=== PATIENT | female | born 1960 | race Caucasian/White ===

== ENCOUNTER 2020-12-26 15:22 | Inpatient (IN) | payer BC, OTHER ==
[~2020-12-26] VITALS: Ht 176 cm; Wt 65.8 kg
[2020-12-26] MEDS ORDERED: RISPERDAL 3 MG T3 MG PO (20:44)
[2020-12-26] MEDS ORDERED: TRAZODONE HCL100 MG PO (20:44)
[2020-12-26] MEDS ORDERED: LEVOTHYROXINE150 MC1 PO (20:45)
[2020-12-26] MEDS ORDERED: ANUSOL-HC25 MG PO (20:46)
[2020-12-26] MEDS ORDERED: VITAMIN D21250 MCG PO (20:47)
[2020-12-26] MEDS ORDERED: HGH (20:49)
[2020-12-27 00:16] VITALS: BP 149/70
[2020-12-27] MEDS ORDERED: CORTEF 20 MG TA20 MG PO (01:33)
[2020-12-27] MEDS ORDERED: CORTEF5 MG PO (01:34)
[2020-12-27] MEDS ORDERED: CORTEF10 MG PO (01:34)
[2020-12-27] MEDS ORDERED: VITAMIN D31250 MC1 PO (01:37)
[2020-12-27] MEDS ORDERED: ZYRTEC 10 MG TA10 MG PO (01:41)
[2020-12-27] MEDS ORDERED: LORAZEPAM 0.50.5 MG PO (01:42)
[2020-12-27] MEDS ORDERED: OLANZAPINE10 M1 PO (01:43)
[2020-12-27] MEDS ORDERED: GENOTROPIN SUBQ (01:44)
--- NOTE | 2020-12-27 02:47 | NUR ---
ADMISSION SUMMARY - NURSING PT WAS ADMITTED TO [facility] ON 12/26/20 AT 2215. VITAL SIGNS OBTAINED; WITHIN NORMAL LIMITS. SKIN ASSESSMENT PERFORMED; NO REMARKABLE FINDINGS. PT WAS UNCOOPERATIVE DURING INTERVIEW. PT WOULD NOT PARTICIPATE IN CONVERSATION. PT DID NOT ANSWER WHEN ASKED ABOUT SI/HI OR AVH. PT APPEARED TO BE RESPONDING TO INTERNAL STIMULI; TRACKING WITH HER EYES, SPEECH DELAYED AND THOUGHT BLOCKING. PT IS AMBULATORY; FALL PRECAUTIONS ARE IN PLACE. PT WAS ORIENTED TO ROOM AND PROVIDED WITH WATER, TOILETRIES, AND LINENS. /GUARDIAN NOAH AGUILAR WAS NOTIFIED VIA PHONE AND VERBAL CONSENTS WERE OBTAINED.
[2020-12-27 09:08] VITALS: BP 145/74
--- NOTE | 2020-12-27 09:24 | NUR ---
Nutrition: pt admitted to [facility] with psychosis. PMH: Schizophrenia, bipolar, insomnia. Visited with pt in dayroom. She initially reports her appetite was good "Sometimes" but then refused to answer further questions. Unaware of UBW. Current 139#, will follow trends as no wt hx in [employer]. Did eat 75% of breakfast per CHAINSTITCH FELLED SEAM OPERATOR this morning. No labs. On Vitamin D supplement. Place as low risk but monitor for necessary interventions.
--- NOTE | 2020-12-27 12:02 | NUR ---
PATIENT WAS AWAKE AMBULATING IN ROOM WHEN CARE ASSUMED. PATIENT IS ALERT, AND ORIENTED X 3-4 ABLE TO VOICE NEED, BUT CHOOSE NOT TO RESPOND TO ALL ASSEMENT QUESTIONS. PATIENT TOOK ALL MEDICATION WHOLE WITHOUT DIFFICULTY, SHE IS EATING MEALS, AND DRINKING FLUID WELL. PATIENT DENIES SUICIDAL/HOMICIDAL IDEATION, SHE DENIES DEPRESSION/ANXIETY, SHE RATES GHAZALA LOWER EXTREMETY PAIN 4/10, PRN TYLENOL 650MG GIVEN WITH POSITIVE EFFECT, PAIN DECREASED TO 1/10 UPON REASSESSMENT. AFFECT IS FLAT/BLUNTED, MOOD IS EUTHYMIC, POOR EYE CONTACT. PATIENT SAT IN MORNING GROUP, NO SIGN OF ACUTE DISTRESS NOTED AT THIS TIME, WILL MONITOR FOR SAFETY.
[2020-12-27 13:34] LABS: CHOLESTEROL 277 mg/dL (<200); HDL CHOLESTEROL 37 mg/dL (>40); LDL CHOLESTEROL 202 mg/dL (<100); TC:HDL 7.5 Ratio (Not establshd); TRIGLYCERIDE 190 mg/dL (<150); VLDL 38 mg/dL (<40)
[2020-12-27 19:38] VITALS: BP 135/73
[2020-12-27 22:37] VITALS: BP 135/73
--- NOTE | 2020-12-28 01:33 | NUR ---
Ashley was isolative and withdrawn to her room throughout the night. She was drowsy but easy to arouse when approached. She denied SI/HI but when asked about CUBA, pt refused to respond. She initially did not wish to take her scheduled risperdal but once educated on why she was here, to get stable back on her medications, pt was compliant with medication, without difficuly. She did come out of her room later in the evening and stating, "I need to talk to someone about a snake", turned around and showed nurse what appeared to be a bug bite to the middle of her buttocks. Nurse redirected pt to her room where pt's skin was further assessed and pt responded appropriately. Pt was educated that it appeared to be a bug bite and that we would continue to monitor as it did not appear infected at this time and no drainage noted. Pt did not voice other concerns at this time and no distress noted. Pt's dropped off pt's medications and are currently with inpatient pharmacy, update provided as well. Will continue to monitor.
[2020-12-28 09:20] VITALS: BP 113/62
--- NOTE | 2020-12-28 12:22 | NUR ---
Alert and orientated to name only. Sleepy spending majority of time in room. Calm and cooperative, compliant with meds. Did ask about her hydrocortisone. Selective in answering questions. Denies SI/HI. Breath sounds clear. Reg HR auscultated. Color pink with brisk capillary refill and palpable peripheral pulses. No edema noted. Independent with voiding. Active bowel sounds over soft, rounded abdomen. States BM yesterday. Ambulates with regular, steady gait.
--- NOTE | 2020-12-28 13:54 | NUR ---
12-28-2020--13:30--Woke patient up and asked her to come to group. She declined.
--- NOTE | 2020-12-28 17:19 | NUR ---
1000 SW met with the Pt in the dining room. Pt initally seemed to be open to talking. However when SW asked the Pt about walking away from group and walking away from her home on occassion. Pt stopped talking and seemed to ignore SW. SW tried to rengage the Pt by changing the subject. Pt continued not engage in any conversation with SW. SW allow Pt to continue eating her morning snack and left.
[2020-12-28 19:34] VITALS: BP 115/65
[2020-12-28 20:00] VITALS: BP 115/65
--- NOTE | 2020-12-29 00:20 | NUR ---
[facility] CARE WAS RESUMED AT 1900. SHE IS ALERT WITH SOME CONFUSION. ABLE TO VERBALIZE SOME CONCERN. SHE IS CONTINENT OF BOWEL AND BLADDER. TOOK HER MEDS WHOLE.BS IS ACTIVE X4 QUADS . SHE DENIES PAINS/SI/AVH/HI. SHE HAS A YELLOW SOCKS ON. BED IS LOW, LOCKED AND ALARMED. SHE REFUSED HER HS HOME MEDS," I STOPPED ATKING IT 8YEARS AGO". SHE IS A MODERATE ASSIST WITH CARE. [id number] CHECK ONGOING. CONTINUE CARE.
--- NOTE | 2020-12-29 01:30 | NUR ---
This RN resumed care of pt at 1215. Pt is sleeping and does not appear in any distress at this time. Will continue to monitor.
[2020-12-29 08:28] VITALS: BP 109/63
--- NOTE | 2020-12-29 13:54 | NUR ---
12-29-2020--GROUP--Ashley was present at group but doid not participate or join in on any conversations about anger.
--- NOTE | 2020-12-29 14:52 | NUR ---
CARE OF PATIENT ASSUMED AT 0700, PATIENT WAS LAYING IN BED AWAKE, ALERT AND ORIENTED X3, PATIENT CALM AND PLEASANT WITH ASSESSMENT, ACTIVE BOWEL SOUND WITH SOFT AND ROUNDED ABDOMEN, LUNGS CLEAR, REGULAR HR AUSCULTATED, COLOR PINK WITH BRISK CAPILLARY REFILL, RR EVEN AND NONLABORED ROOM AIR, SKIN INTACT, NO EDEMA NOTED, PATIENT TOOK MEDICATION WHOLE, AMBULATE WITH A WHEEL CHAIR DUE TO WEAKNESS ON HER LEGS, INCONTINENT OF BLADDER, ATE MEALS IN HER ROOM AND ATTEND GROUPS, NO BEHAVIOR CHANGE. PATIENT DENIES SI/HI, WILL CONTINUE TO MONITOR PATIENT FOR SAFETY
[2020-12-29 19:48] VITALS: BP 124/62
--- NOTE | 2020-12-29 20:04 | H ---
[facility] [place] [address] HISTORY AND PHYSICAL Name: FERMÍN AGUILAR Room #: 525B-B ADM IN M.R.#: [id number] Admission: 12/26/20 Attend Phys: Rissa Soriano MD Discharge: Date of : 60 Report #: [id number] THIS REPORT FOR: cc: FAM - Family physician unknown FAM - Family physician unknown Aleksey Chen DO ~ DATE OF SERVICE: 12/26/2020 INPATIENT PSYCHIATRIC EVALUATION ATTENDING PSYCHIATRIST: Aleksey Chen DO MEDICAL CONSULTANTS: Annette Perez and Billy Galdamez MD, and the hospitalist team. REASON FOR ADMISSION: Psychosis including guardedness, paranoia, walking off over a mile from house, being found in grass, and refusing to take psychiatric medication. SOURCES OF INFORMATION: Telephone interview with , Rogelio, who is her guardian, who is under [place] guardianship. [facility] screen records and from [facility] and chart review. The patient is a poor historian and was not forthcoming. CHIEF COMPLAINT: Unspecified. HISTORY OF PRESENT ILLNESS: A 60-year-old female under [place] guardianship. The patient was found walking a few miles from home and refusing medications since April of this year. Confusion, paranoia, auditory or visual hallucinations, disoriented, insomnia, and refusing to talk. The patient was evaluated by Aarbella Sparks, an SQL SERVER DBA, from [facility]. There are notes, which indicate she was gone for about 4 hours. She was found a mile and a half from her home, laying in the grass next to the road, was defiant, oppositional when found, refusing to return home. reports she has been not taking her risperidone for the last 8 months or any of her other medications. reports she wakes up around 3:00 a.m. every night, will walk outside anywhere from 5 seconds to 5 minutes and then return to bed, gets up and repeats this 3-4 more times before returning to sleep for the night. observes her talking to herself frequently. does not know if she is eating when he is at work. He gets her to eat 2-3 meals a day when he is home with her. Client has been restless and defiant with him the last several days. Client did not respond to receiver bulk system, did not respond verbally or shake head when being asked questions. She stared blankly at the receiver bulk system off into the distance. I did not have much better luck with her this morning. LABORATORY AND DIAGNOSTIC DATA: From [facility] done on 12/24/2020, [address] [address] HISTORY AND PHYSICAL Name: FERMÍN AGUILAR Room #: 525B-B ADM IN M.R.#: [id number] Admission: 12/26/20 Attend Phys: Rissa Soriano MD Discharge: Date of : 60 Report #: [id number] white count was 5.04, H and H 9.8 and 28.1, platelet count is 144. Glucose 72, BUN 13, creatinine 1.01. Sodium 138, potassium 3.76, chloride 107, bicarbonate 24, AST 37, ALT 9, alkaline phosphatase 75, calcium 8.9. Total protein 6.6, albumin 4.1. CPK is 365, very mildly elevated. CK-MB 3.27. Troponin high sensitivity 27. CK-MB index 0.9. Alcohol less than 10. Magnesium 1.8. EKG done at [facility] showed sinus bradycardia, ventricular rate of 50, low voltage QRS, QTc 452, TX interval 184 milliseconds. PAST MEDICAL HISTORY: Includes hypothyroidism, hypokalemia, hypopituitarism. 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 The guardian gave a handwritten note, which I reviewed, describing some of the problems. When she was 17, she had twins by . She hemorrhaged, they did not get blood back in her in time, her pituitary gland was damaged. She has been on Synthroid, hydrocortisone, and hormone replacement since she was 22 years old. Whenever she gets sick, it can get life-threatening quick, is to become febrile, very high. 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 In 1998, Dr. Lopez Olivera at [facility] put her in a study for human growth hormone. She has been getting that regularly, that helped her stronger to fight illness and gave her a better quality of life. She has lived longer, but it is hard on her mentally. About 7 years ago, she started seeing things and hearing voices, she would talk to herself. Dr. Olivera was having a hard time regulating meds. Her TSH level was done as well, it was 0.01. She started having this problem, so Dr. Olivera took her off Synthroid and put her on levothyroxine. Ten months ago, we got her back on Synthroid. She has done better. They checked thyroid a couple of days ago and think levels were better, I believe it was 3.5. I put her on risperidone 4 mg and trazodone 100 mg, that is what has worked best for her and she does not feel weird when she takes it, so she will take it longer. Everything else, she will not stay on. Reportedly, she has had 13 hospital stays and treatments over the last 2 years. FAMILY PSYCHIATRIC HISTORY: No history of psychiatric illness in the family. She had three sisters and one brother. Her sisters of various causes. FAMILY MEDICAL HISTORY: Denied. SOCIAL HISTORY: She has two grown children. This is her second marriage. No history of physical, sexual, or emotional abuse. No history of alcohol, smoking, or tobacco use. PHYSICAL EXAMINATION: VITAL SIGNS: Today, temperature 36.2, pulse 68, respirations 17, BP 145/74, O2 sat 99%. MUSCULOSKELETAL: Unkempt appearance. Normal gait and station. [facility] [address] [place] [address] HISTORY AND PHYSICAL Name: FERMÍN AGUILAR [facility] IN M.R.#: [id number] Admission: 12/26/20 Attend Phys: Rissa Soriano MD Discharge: Date of : 60 Report #: [id number] MENTAL STATUS EXAMINATION: This is a well-developed, unkempt-appearing, tanned female, appearing older than stated age. BMI 20.4, weight 63.049 kilograms. Height 176 cm. Attention and concentration impaired. Speech slow, nonspontaneous. Thought process and thought content: Unable to really assess. No overt self-harm behaviors, or denied auditory, visual, or tactile hallucinations. mood/affect- flat, congruent Memory not able to be tested. Insight and judgment were impaired. Fund of knowledge well below average. Please note, education level is GED. REVIEW OF SYSTEMS: Not able to be done due to her noncooperation. ALLERGIES: PENICILLINS, NITROFURANTOIN, ARIPIPRAZOLE. FORMULATION: A 60-year-old female brought in by spouse for acute psychotic symptoms and self-care failure. DIAGNOSES: At this time, unspecified psychosis, history of schizophrenia, panhypopituitarism, hypothyroidism. SURGICAL HISTORY: Includes . PLAN: Admitted by guardian to [facility]. Regarding medications, hydrocortisone 5 mg oral daily with lunch for hypopituitarism, start risperidone 2 mg oral at 1100 and 2100 daily with forced IM backup as necessary, 2.5 mg haloperidol. She has ergocalciferol 50,000 international units oral weekly, hydrocortisone 10 mg p.o. b.i.d. with meals, Synthroid 150 mcg a day. is going to bring in the home meds. Trazodone 50 mg oral at bedtime for insomnia. We will change that one to p.r.n. I have discontinued olanzapine this morning, so we have added haloperidol. We will see how she responds to initial antipsychotic. She is a FULL CODE. does not have concerns about dementia at this time. Time spent on case today is greater than 60 minutes, greater than 50% of time in review of records and coordination of care, including telephone conversation. STRENGTHS: Insured. She is under guardianship. [address] [address] HISTORY AND PHYSICAL Name: FERMÍN AGUILAR Room #: 525B-B ADM IN M.R.#: [id number] Admission: 12/26/20 Attend Phys: Rissa Soriano MD Discharge: Date of : 60 Report #: [id number] WEAKNESSES: Chronic noncompliance with antipsychotic medications, poor coping skills, limited caregivers available and she has been home alone. <ELECTRONICALLY SIGNED> By: Aleksey Chen DO 12/29/202003 1350 [id number] Aleksey Chen DO /nt
--- NOTE | 2020-12-30 02:58 | NUR ---
PATIENT IS RESTING HER ROOM LYING DOWN. PT APPEARS TO BE MORE ALERT TODAY. SHE ASKED ABOUT HER MEDICATIONS AND TOOK THEM WITHOUG ISSUE. SHE IS AAOX2 AT THIS TIME. DENIES PAIN OR NEEDS. SHE DOES APPEAR LETHARGIC BUT STATES THAT SHE FEELS GOOD. SHE STAYED IN HER ROOM FOR THE MAJORITY OF THE SHIFT. VSS. WILL CONTINUE TO MONITOR FOR CHANGES IN PATIENT STATUS.
[2020-12-30 09:58] VITALS: BP 128/53
--- NOTE | 2020-12-30 16:18 | NUR ---
HAS BEEN OUT OF ROOM MAJORITY OF DAY-DID ATTEND SCHEDULED GROUP AND STRUCTURES FREE TIME WORKING ON PUZZLES IN THE DAYROOM. SOME SOCIALIZATION WITH FEMALE PEER AND DID SPEAK WITH BRIEFLY ON PHONE. GAIT STEADY WITHOUT ASSISTIVE DEVICES. IS SOMEWHAT VAUGUE,SUPERFICIAL DURING 1;1 INTERACTION WITH THIS RN-UNABLE TO STATE WHAT HAD BROUGHT HER TO HOSPITAL-DENIES C/O PAIN-APPETITE FAIR/GOOD EATING 50-75 PECENT OF MEALS PROVIDED.
[2020-12-30 19:55] VITALS: BP 124/62
--- NOTE | 2020-12-31 01:47 | NUR ---
PATIENT RESTING IN COMMON AREA IN A RECLINER. SHE IS INTERACTIVE AND ANSWERING QUESTION TONIGHT. SHE IS AAOX3. ASKED QUESTIONS ABOUT HER RISPERDAL. STATES THAT SHE DOES NOT NEED THE COLACE. AFFECT MUCH MORE BRIGHT COMPARED TO PREVIOUS 2 EVENINGS. SHE IS AMBULATING UNDER HER OWN POWER. NO S/S OF DISTRESS NOTED. WILL CONTINUE TO MONITOR FOR CHANGES IN PATIENT STATUS.
[2020-12-31 09:41] VITALS: BP 114/90
--- NOTE | 2020-12-31 14:52 | NUR ---
patient resumed at 0700, patient is alert and oriented x3, she came out for breakfast then went back to the room, assessment completed with active bowel sound with soft and rounded abdomen, breath sound diminished, patient covid test came back positive, patient is now on isolation room, oxygen sat to be done every 6 hours per doctor's order, she took her medication whole patient denies si/hi
[2020-12-31 19:26] VITALS: BP 127/70
[2020-12-31 19:55] VITALS: BP 101/51
[2021-01-01] VITALS (7 sets, daily range): BP systolic 118–130; BP diastolic 58–78
--- NOTE | 2021-01-01 02:56 | NUR ---
PATIENT CARE WAS RESUMED AT 1900. SHE IS ON ISOLATIN FOR COVID POSITIVE. SHE IS RESING IN BED. REFUSING MOST OF THE CARE AND NOT CO-OPERATIVE.VITALS ARE WITHIN NRAML RANGES. NO TEMP. SHE DENIES PAINS/AVH/HI. BED IS LOW, LOCKED AND ALARMED. SHE TOOK HER PILLS WHOLE AND SHE IS CONTINENT OF BOWEL AND BLADDER. ABLE TO VERBALISE HER NEEDS.
--- NOTE | 2021-01-01 11:46 | NUR ---
Dr. Lucas and DORIE called Pt's guardian concernin discharge. LEft a VM requesting a call back
--- NOTE | 2021-01-01 14:38 | NUR ---
RESUMMED CARE FROM OVERNIGHT SHIFT THIS AM, PATIENT IN ROOM LYING QUIET. PATIENT ATE BREAKFAST TOOK MEDICATION WITHOUT INCIDENCE; PATIENT ALERT ORIENTED TIMES 3. PATIENT DENIES SI/HI/AH/VH AT PRESENT PATIENT LIKES TO COME OUT OF ROOM AND HAS TO BE REDIRECTED TO STAY IN ROOM. PATIENTS ABDOMEN SOFT BOWEL SOUNDS PATIENTS LUNGS CLEAR. PATIENT IS ASYMPTOMATIC FOR COVID WILL CONTINUE TO MONITOR PATIENT FOR SAFETY AND BEHAVIORS.
--- NOTE | 2021-01-01 21:59 | NUR ---
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 PT REMAINS ON COVID ISOLATION PRECAUTIONS. THIS SHIFT PT WAS ALERT AND ORIENTED TO SELF. AFFECT WAS FLAT AND PT MADE POOR EYE CONTACT. PT WAS COMPLIANT WITH MEDICATIONS AND VITAL SIGNS. PT COULD ANSWER QUESTIONS APPROPRIATELY, BUT WOULD NOT ANSWER ANY QUESTIONS ABOUT SI/HI/AVH/DEPRESSION/ANXIETY OR QUESTIOS TO MEASURE ORIETATION. PT COMPELTELY STOPPED TALKING TO RN SOON RN ASKED PSYCH QUESTIONS. PT DID STATE THAT HER DAY HAS NOT BEEN GOOD SINCE SHE HAS TO ISOLATE. FALL PRECAUTIONS ARE IN PLACE. WILL CONTINUE TO MONITOR PT FOR PSYCH SYMPTOMS.
[2021-01-02 09:09] VITALS: BP 140/72
--- NOTE | 2021-01-02 11:14 | NUR ---
PATIENT ALERT AND ORIENTED X2-3 WHEN CARE WAS ASSUMED BY 0700, PATIENT IS SITTING ON A CHAIR IN THE ROOM, PLEASANT WITH CARE VSS, TOOK HER MEDICATIOM WHOLE, NO PROBLEM, ACTIVE BOWEL SOUND, BREATH SOUND CLEAR, RR EVEN NONLABORED ON ROOM AIR, REGULAR HR, O2 M[place] 100%, PATIENT CONTINUE TO STAY IN HER ROOM, SHE AMBULATE ON A STEADY GAIT, DENIES SI/HI, NO PAIN REPORTED, NO BEHAVIOR CHANGES.
--- NOTE | 2021-01-02 14:49 | NUR ---
01-02-2021--13:00--GROUP--Patient was present for group. (It was a continuatiomn from last week on anger and where in our bodies we first start feeling anger.) Although she was present and attentive she didn't join in the conversation or discussion.
[2021-01-02 20:00] VITALS: BP 140/72
--- NOTE | 2021-01-02 23:41 | NUR ---
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 PT IS ON ISOLATION PRECAUTIONS FOR COVID. PT WAS COOPERATIVE WITH STAYING IN HER ROOM. PT WAS ALERT TO SELF. IT WAS DIFFICULT TO ASSESS HOW ORIENTED PT IS BECAUSE SHE IS GUARDED WITH STAFF. PT WAS COMPLIANT WIHT MEDICATION AND VITAL SIGNS. PT MADE A COMMENT TO RN THAT WHEN SHE GOES HOME "EVERYTHING WILL BE VERY DIFFERENT." RN ASKED PT WHAT WILL BE DIFFERENT AND PT RESPONDED "I JUST HAVE SO MUCH TO DO. GET EVERYTHING ORGANIZED." PT WOULD NOT ELABORATE WHEN RN QUESTIONED HER FURTHER. PT DENIED COVID SYMPTOMS.
[2021-01-03 00:15] VITALS: BP 135/86
--- NOTE | 2021-01-03 14:36 | NUR ---
PATIENT CONTINUE ON ISOLATION PRECAUTION, STAYS IN ROOM, BUT COMES OUT INTERMITTENTLY, AND IMMEDIATELY REDIRETS BY STAFF TO COMPLY WITH ISOLATION PRECAUTION. PATIENT TOOK ALL MEDICATION WHOLE WITHOUT DIFFICULTY. SHE IS EATING MEALS, AND DRINKING FLUID IN ROOM WELL. PATIENT DENIES SUICIDAL/HOMICIDAL IDEATION. SHE DENIES DEPRESSION/ANXIETY, "AM GOING HOME TODAY, I FEEL BETTER". PATIENT DENIES HAVING PHYSICAL PAIN. PATIENT OBSERVED BY STAFF REPONDING TO INTERNAL STIMULI, TALKING TO SELF, AND UNSEEN OTHERS. AFFECT IS FLAT/BLUNTED, MOOD IS EUTHYMIC. PATIENT IS DICHARGED HOME TODAY BY DR. HILL, TO PICK HER UP AT 1530HRS. NO SIGN OF ACUTE DISTRESS NOTED AT THIS TIME, WILL MONITOR FOR SAFETY.
[2021-01-03] MEDS ORDERED: LIPITOR 20 MG T20 M1 PO (14:42)
[2021-01-03] MEDS ORDERED: RISPERDAL2 MG PO (14:43)
[2021-01-03] MEDS ORDERED: CALTRATE-600 W1 EACH PO (14:44)
[2021-01-03] MEDS ORDERED: HYDROCORTISONE10 MG PO ×2 (14:45→14:46)
[2021-01-03] MEDS ORDERED: COLACE 100 MG100 MG PO (14:45)
[2021-01-03 15:00] VITALS: BP 135/86
--- NOTE | 2021-01-03 16:26 | NUR ---
01/02/2021 DORIE contacted the Pt's huband/Guardian, Bhavesh concerning discharge. Bhavesh confirmed he had spoken with Dr. Lucas and was in agreement with the discharge. DORIE asked Bhavesh if Pt had an outpt therapist or psychiatrist. Bhavesh informed Pt sees the terminal operations supervisor for psychiatry. DORIE provided education about the importance of Pt having follow up psychiatric services with a psychiatrist. Bhavesh stated that he would have to ask the Pt if she wanted to participate in psychiatry. DORIE offered to set up a follow up appointments. Bhavesh refused follow up psychiatric appointment be set up. Discharge was set for 01/03/2021 @3370. Bhavesh will transport the Pt. DORIE will provide information on scheduling an intake appointment with [facility] on the discharge document.
--- NOTE | 2021-01-04 22:28 | D ---
[facility] [place] [address] DISCHARGE SUMMARY Name: FERMÍN AGUILAR Room #: 525B-B [facility] IN M.R.#: [id number] Admission: 12/26/20 Attend Phys: Rissa Soriano MD Discharge: 01/03/21 Date of : 60 Report #: [id number] THIS REPORT FOR: cc: FAM - Family physician unknown FAM - Family physician unknown Aleksey Chen DO ~ DATE OF SERVICE: 01/03/2021 PSYCHIATRIC DISCHARGE SUMMARY ATTENDING PSYCHIATRIST: Aleksey Chen D.O. PLATE CLEANER: Dr. Carolee Orellana. DISCHARGE DIAGNOSES: 1. Schizophrenia. 2. Coronavirus, positive by PCR, then negative on subsequent tests. The patient was on isolation precautions at the time of discharge, recommending the patient continue isolation for 6 more days at home. Her and guardian is aware of this. The patient is discharged to her home, 24-hour supervision was recommended; however, the guardian is only going to be part-time caregiver. DISCHARGE MEDICATIONS: These were sent to [facility] in [place]. They include levothyroxine sodium 150 mcg oral daily for hypothyroidism, ergocalciferol 50,000 international units oral weekly, atorvastatin 20 mg oral daily for hyperlipidemia, risperidone 5 mg oral at bedtime for schizophrenia, calcium carbonate 500 mg oral 3 times a day for supplementation, docusate sodium 100 mg oral twice per day hold if diarrhea or bowel motility, hydrocortisone 10 mg oral twice daily with meals for hypopituitarism and 5 mg oral daily with lunch. The patient's after care should be at [facility]. The patient should have wraparound services in lieu of having 24-hour care at home. The patient is on a regular diet. Activity level is as tolerated. No alcohol, no illicit drugs. The patient is to see primary care physician within 1 month. LABORATORY DATA: Significant laboratories this admission. A1c 5.0. Triglycerides 190, total cholesterol 277, LDL 202, HDL 37. COVID-19 serology as described above. Ambiguous testing went from not detected on 12/26 and 12/29, positive 12/31 and not detected same day on 12/31. REASON FOR ADMISSION: Back on 12/26/2020, a 60-year-old female presented to [facility] after being found a [place] a half from her home. The patient was disheveled, oppositional when found. The patient had been refusing [facility] [address] [place] [address] DISCHARGE SUMMARY Name: FERMÍN AGUILAR Room #: 525B-B [facility] IN M.R.#: [id number] Admission: 12/26/20 Attend Phys: Rissa Soriano MD Discharge: 01/03/21 Date of : 60 Report #: [id number] antipsychotic medications for 8 months. HOSPITAL COURSE: The patient was admitted to [facility] Unit. She was started on risperidone on a dose of 2 mg twice daily. We had several phone conferences with her who is also [place] guardian. He describes that the patient has refused medications since around the first of the year, she had been hospitalized in late 2019. He has allowed this at this time, but the patient had gotten relatively worse and had walked off and missing for several hours, was found in need of psychiatric admission. I discussed long-acting injection with him such as Ivega Susteena or Haldol Decanoate, the guardian declined. I discussed the need for 24-hour supervision when he is at work until good habits are established at discharge. Unfortunately, the last several days of admission were hampered by her testing positive for COVID-19 on unit surveillance testing. She had to be isolated to her room. She was not happy with this. Her was worried that she would develop fulminant symptoms like picture; she did not. At time of discharge, the patient was in stable condition. No SI, no HI. VITAL SIGNS: Temperature 36.3, pulse 86, respirations 18, BP 135/86, weight 65,771 kg, BMI 21.2. MUSCULOSKELETAL: Unkempt appearance. Normal gait and station. MENTAL STATUS EXAMINATION: This is a well-developed female, appearing stated age. Attention fair. Concentration limited. Speech normal rate, rhythm and tone. Thought process: Linear and goal directed. Thought content focused on discharge. Denied SI, HI. Denied auditory, visual or tactile hallucinations. Mood and affect was okay, congruent, somewhat flattened affect. Memory not formally tested. Insight limited. Judgment limited. Fund of knowledge below average. Prognosis for this patient is guarded due to her history of poor compliance and only partial acceptance of recommendations per guardian. <ELECTRONICALLY SIGNED> By: Aleksey Chen DO 01/04/212227 [id number] Aleksey Chen DO /nt
== END 2021-01-03 15:45 | disposition home or self-care (01) | DRG 885 ==
LOC: SBH
PROVIDERS: Psychiatry & Neurology Psychiatry; ADMIT Psychiatry & Neurology Psychiatry; ATTEND Psychiatry & Neurology Psychiatry
DX: F20.9 Schizophrenia, unspecified (principal); U07.1 COVID-19; E23.0 Hypopituitarism; F29 Unspecified psychosis not due to a substance or known physiological condition; F22 Delusional disorders; F31.9 Bipolar disorder, unspecified; E03.9 Hypothyroidism, unspecified; G47.00 Insomnia, unspecified; Z28.21 Immunization not carried out because of patient refusal; Z88.1 Allergy status to other antibiotic agents; Z88.0 Allergy status to penicillin; Z88.8 Allergy status to other drugs, medicaments and biological substances; Z98.891 History of uterine scar from previous surgery; Z79.899 Other long term (current) drug therapy
CPT/HCPCS: 10880

== ENCOUNTER 2020-12-26 16:52 | Emergency (ER) | payer BC, OTHER ==
[~2020-12-26] VITALS: Ht 160 cm; Wt 63.5 kg
[2020-12-26 16:54] VITALS: BP 137/64
--- NOTE | 2020-12-26 19:37 | NUR ---
PT PULLED OFF MONITORING EQUIPMENT AT THIS TIME.
[2020-12-26] MEDS ORDERED: RISPERDAL 3 MG T3 MG PO (20:44)
[2020-12-26] MEDS ORDERED: TRAZODONE HCL100 MG PO (20:44)
[2020-12-26] MEDS ORDERED: LEVOTHYROXINE150 MC1 PO (20:45)
[2020-12-26] MEDS ORDERED: ANUSOL-HC25 MG PO (20:46)
[2020-12-26] MEDS ORDERED: VITAMIN D21250 MCG PO (20:47)
[2020-12-26] MEDS ORDERED: HGH (20:49)
[2020-12-26 22:05] VITALS: BP 149/74
[2020-12-27] MEDS ORDERED: CORTEF 20 MG TA20 MG PO (01:33)
[2020-12-27] MEDS ORDERED: CORTEF5 MG PO (01:34)
[2020-12-27] MEDS ORDERED: CORTEF10 MG PO (01:34)
[2020-12-27] MEDS ORDERED: VITAMIN D31250 MC1 PO (01:37)
[2020-12-27] MEDS ORDERED: ZYRTEC 10 MG TA10 MG PO (01:41)
[2020-12-27] MEDS ORDERED: LORAZEPAM 0.50.5 MG PO (01:42)
[2020-12-27] MEDS ORDERED: OLANZAPINE10 M1 PO (01:43)
[2020-12-27] MEDS ORDERED: GENOTROPIN SUBQ (01:44)
== END 2020-12-26 22:07 | disposition still patient (30) ==
LOC: ER 16:52 → EROBS 17:03 → ER 17:03
PROVIDERS: Emergency Medicine
DX: F20.0 Paranoid schizophrenia (principal); Z20.822 Contact with and (suspected) exposure to COVID-19; F31.9 Bipolar disorder, unspecified; E03.9 Hypothyroidism, unspecified; F20.9 Schizophrenia, unspecified; Z79.1 Long term (current) use of non-steroidal anti-inflammatories (NSAID); Z79.891 Long term (current) use of opiate analgesic; Z79.899 Other long term (current) drug therapy; Z88.0 Allergy status to penicillin; Z88.8 Allergy status to other drugs, medicaments and biological substances